=== PATIENT | female | born 1940 | race Caucasian/White ===

== ENCOUNTER → 2020-03-16 12:19 | Outpatient (BNVA) | payer MEDICARE, SELFPAY | PROVIDERS: Family Provider Nurse Practitioner Family; PCP Nurse Practitioner Family; Visit Provider Nurse Practitioner Family | DX: I10 Essential (primary) hypertension (principal); E78.5 Hyperlipidemia, unspecified; G62.9 Polyneuropathy, unspecified | CPT/HCPCS: 80053; 80061; 84443; 85025 ==

== ENCOUNTER 2020-07-16 10:55 | Outpatient (CLI) | payer MEDICARE, SELFPAY ==
[2020-07-16 11:20] LABS: Eosinophils # 0.1 10^3/uL (0.0-0.8); Hemoglobin 12.9 g/dL (11.5-15.3); Lymphocytes # 1.5 10^3/uL (0.8-4.8); Lymphocytes % 49.2 %; Mean Corpuscular HGB Conc 31.5 g/dL (30.0-36.0); Mean Corpuscular Hemoglobin 30.2 pg (28.0-34.0); Mean Platelet Volume 9.7 fL (7.4-10.4); Monocytes # 0.3 10^3/uL (0.2-0.9); Monocytes % 8.3 %; Neutrophils # 1.19 10^3/uL (1.8-7.7); Neutrophils % 39.5 %; Nucleated Red Blood Cells % 0 %; Platelet Count 125 10^3/cmm (130-400); Red Blood Count 4.27 10^6/uL (4.1-5.3); Red Cell Distribution Width 13.5 % (12.1-15.1)
[2020-07-16 11:36] LABS: Alanine Aminotransferase 15 U/L (0-33); Albumin Level 4.6 g/dL (3.5-5.2); Alkaline Phosphatase 91 IU/L (35-105); Anion Gap 15.6 (5-19); Aspartate Amino Transferase 22 U/L (0-32); Blood Urea Nitrogen 25 mg/dL (8-23); Calcium 9.6 mg/dL (8.5-10.5); Carbon Dioxide 27 mmol/L (22-29); Chloride 105 mmol/L (98-107); Glucose 102 mg/dL (65-115); Lactate Dehydrogenase 261 U/L (135-214); Osmolality Calculated 293 mOsm/kg (285-295); Potassium 4.6 mmol/L (3.5-5.1); Sodium 143 mmol/L (136-145); Total Bilirubin 0.5 mg/dL (0.15-1.2); Total Protein 6.6 g/dL (6.6-8.7)
--- NOTE | 2020-07-17 07:20 | ONC FU_ITS ---
Dr. Roberts Patient Follow-Up Note Patient: Devorah Dunn Unit #: [id number]: 1940 Dicatated By: Ming Roberts M.D.Date of Visit:Jul 16, 2020 Onc Med Follow-up/Prog Note Chief Complaint: Splenic lymphoma. 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 She has been in good general health. In April 2010 she becomes severely neutropenic in association with a febrile illness, presumed to have been tick fever. I had seen her initially in June 2012. Her CBC at that time showed mild pancytopenia with hemoglobin 11.6 g, white blood cell count 2700 with absolute neutrophil count of 1400, and platelet count 117,000. She had normal sedimentation rate and negative KELLY and RA titers. Her viral hepatitis profile was negative. She was not symptomatic, and I had opted to just monitor with observation/expectant management. I had last seen her in December 2012, and at that point she was stable. She then continued her regular follow-up with Dr. Mesa. Multiple subsequent blood counts had shown similar findings, though with some minor variability. A repeat CBC from 07/23/2018 showed hemoglobin 11.8 g with white blood cell count 2300 and platelet count 107,000. The differential, however, showed only 36% neutrophils with 58% lymphocytes and 3% monocytes. The other significant changes was that the red cell indices had become mildly hypochromic/microcytic. A comprehensive metabolic profile from 07/09/2018 was unremarkable. In particular, the bilirubin and liver enzymes were normal. B12 level was normal at 672 pg/mL. I have been seen her again on 08/26/2018. Her exam at that time did show moderate splenomegaly with the spleen palpable at 6 cm below the costal margin. There was no peripheral lymphadenopathy noted. Her CBC showed hemoglobin 11.7 g, white blood cell count 2300, and platelet count 115,000. Sedimentation rate was normal at 11 mm/h. LDH was mildly elevated at 252/246 U/L. The serum iron studies showed low transferrin saturation at 9.2% with ferritin 55.9 ng/mL. Serum protein electrophoresis was normal with no monoclonal protein detected. The free light chain assay showed elevated kappa light chain at 112.85 mg/L with lambda light chain 13.20 mg/L and elevated kappa/lambda ratio at 8.55. PNH screen was negative. CT of the abdomen/pelvis on 09/03/2018 showed marked splenomegaly measuring 16.5 cm. There were slightly enlarged gastrohepatic lymph nodes. There was mild hepatomegaly. There was no retroperitoneal or periaortic lymphadenopathy. She underwent bone marrow aspiration/biopsy on 09/23/2018. The marrow was mildly hypercellular, estimated at 50-70%, but with no overt infiltrative process. Iron stores were noted to be absent. Plasma cells were mildly increased, overall at 5%, but in focal areas up to 10-20%. [place]/lambda???stain showed strong staining of plasma cells for kappa light chains and very rare staining for lambda light chains. The standard FISH panels for MDS and for myeloma were unrevealing. However, the lymphoma FISH panel was positive for the MYC (8q24) rearrangement. The standard chromosome analysis was normal. Overall, the findings were felt to be consistent with plasma cell neoplasm. Skeletal survey showed no radiographic evidence of multiple myeloma or other lytic lesions. A 24-hour urine protein electrophoresis showed a total urine protein excretion by 130 mg with no monoclonal protein detected. Further evaluation with PET/CT on 11/20/2018 showed enlarged spleen measuring 17 cm with diffuse abnormally increased activity within the spleen consistent with lymphoma or reactive uptake. There were no focal lesions present. There was no adenopathy present indicate lymphomatous nodes. She was seen for follow-up visit on 11/29/2018. At that point she had just started treatment for herpes zoster eruption in the right lumbar distribution. She was having associated neuralgia, for which she was prescribed gabapentin. It did appear that her overall clinical picture was more consistent with splenic lymphoma rather than myeloma. She also had evidence of iron deficiency anemia, for which she was started on an oral iron supplement. Her other medical illnesses include hypertension, hyperlipidemia, degenerative arthritis, and chronic anxiety. She has macular degeneration. She has a history of subarachnoid hemorrhage in 2017. She is a nonsmoker. INTERIM HISTORY: She underwent a course of treatment with rituximab, beginning on 01/04/2019. Her initial treatment was complicated by symptoms of infusion reaction including chills, pretty severe shaking, and back pain. The symptoms did resolve with IV Demerol, but she did not complete the entire dosage of rituximab. With her second weekly infusion on 01/11/2019 I did include steroid with her premedication, and she tolerated the treatment well. She then continued rituximab infusions weekly. She completed her week 6 treatment on 02/08/2019. At her followup visit on 03/08/2019 she remained moderately anemic. Her serum iron studies showed low transferrin saturation at 18%. She was then given parenteral iron replacement with 2 infusions of Injectafer. She tolerated it well. She had a good response with hemoglobin increasing to 12.9 g on a follow-up CBC on 04/11/2019. Restaging CT the abdomen/pelvis on 07/07/2019 show significant improvement in the previously noted splenomegaly. There was no abdominal or retroperitoneal adenopathy noted. She did have evidence of generalized fecal retention, but previous findings of mild diverticulitis had resolved. A 6.4 mm right middle lobe nodule appeared stable. With those findings, she continued on observation/expectant management for the lymphoma. She is seen for a scheduled visit. She has been feeling good generally. She has good energy and activity tolerance. Her ECOG score is 0. She has good appetite. Her weight is up 10 pounds. She is not had fever or night sweats. She has a little bit of sinus drainage and cough. She does not complain of shortness of breath or chest pain. She has noticed occasional palpitations. She has no GI complaints. She does have some urinary frequency and urgency. Her main complaint now is that she has been having pain in her right second toe associated with a hammertoe deformity. She also has some joint pain in her hands, and she has had problems with her right knee. She does not complain of headache or dizziness. She has just occasional numbness/tingling. Medications: Acetaminophen 1 Tablet (of 650 mg) Oral PRN, Allopurinol 1 (2.5 mg) Tablet Oral daily, Furosemide 1 Tablet (of 20 mg) Oral PRN, Gabapentin 1 Capsule (of 300 mg) Oral t.i.d., Glucosamine HCl 1 Tablet (of 1500 mg) Oral b.i.d., Lipitor 1 (10 mg) Tablet Oral at bedtime, Multivitamins 1 Tablet Oral daily, PreserVision AREDS 2 1 Capsule Oral b.i.d. Allergies: Penicillins Review of Systems: Constitutional - She has good energy and activity tolerance. Appetite is good. Her weight is up 10 lbs. No fever, night sweats, or hot flashes. ECOG score is 0, ENMT - She has a little bit of sinus drainage. No mouth sores. No sore throat or difficulty swallowing, Hematologic/Lymphatic - She has easy bruising, Respiratory - No shortness of breath. She has cough associated with the sinus drainage. No pleuritic pain or hemoptysis, Cardiovascular - No angina pain. She occasionally has palpitations, Gastrointestinal - No nausea or vomiting. No heartburn or acid reflux. No diarrhea or constipation. No blood in the stool or black stools, Genitourinary (F) - No dysuria or hematuria. She has urinary frequency and urgency. No incontinence, Musculoskeletal - She has arthritis in her hands. She has developed a hammertoe deformity in her right 2nd toe, Integumentary - No skin rash, Neurologic - No headache or dizziness. She has occasional numbness/tingling. No other focal neurologic symptoms, Psychiatric - No anxiety or depression. No insomnia. Vital Signs: Performed on Jul 16, 2020 13:07 Height - 68.00 in Weight - 188.6 lbs (HIGH) BSA - 1.99 sq.m BMI - 28.68 Temperature - 98.8 F Pulse - 78 /min Respiration - 20 /min BP - 116/62 mm(hg) O2 Sat - 98 % Pain - 0 Physical Examination: Constitutional - She looks good generally, Eyes - Sclerae nonicteric. Conjunctivae clear, ENMT - No lesions noted in the oral cavity, Hematologic/Lymphatic - No cervical, clavicular, or axillary adenopathy, Respiratory - Lungs are clear with good air movement bilaterally, Cardiovascular - Heart rhythm is regular. There is a II/ systolic murmur. There is no gallop or rub noted, Abdomen - Soft. Liver is not enlarged. I am not able to palpate the spleen. There is no abdominal mass or ascites noted, and there is no inguinal adenopathy, Extremities - No edema. Dorsalis pulses are palpable bilaterally. There is a hammertoe deformity of the right 2nd toe, Neurologic - No focal neurologic deficits noted. Lab/Imaging: Test performed on Jul 16, 2020 11:07 LDH (Total) 261 U/L Sodium 143 mmol/L Potassium 4.6 mmol/L Chloride 105 mmol/L CO2 27 mmol/L Anion Gap 15.6 BUN 25 mg/dL Creatinine 1.4 mg/dL Cr Clearance (Est) 44.01 mL/min Glucose 102 mg/dL Calcium 9.6 mg/dL Protein, Total 6.6 g/dL Albumin 4.6 g/dL Globulin 2.0 g/dL Bilirubin, Total 0.5 mg/dL ALT (SGPT) 15 U/L AST (SGOT) 22 U/L Alkaline Phosphatase 91 IU/L WBC 3.0 10 3/uL RBC 4.27 10 6/uL HGB 12.9 g/dL HCT 41.0 % MCV 96.0 fL MCH 30.2 pg MCHC 31.5 g/dL RDW 13.5 % Platelet Count 125 10 3/cmm MPV 9.7 fL Neutrophils 1.19 10 3/uL Lymphocytes 1.5 10 3/uL Monocytes 0.3 10 3/uL Eosinophils 0.1 10 3/uL Basophils 0.0 10 3/uL Neutrophil % 39.5 % Lymphocyte % 49.2 % Monocyte % 8.3 % Eosinophil % 2.0 % Basophils % 1.0 % NRBC % 0 % Impression: 1. Patient with pancytopenia and with splenomegaly. The spleen showed diffuse uptake by PET, suggestive of lymphoma. There was no associated lymphadenopathy. Bone marrow aspiration/biopsy showed mild increase in plasma cell suggestive of possible plasma cell neoplasm. However, there was no other clinical evidence to suggest myeloma, and a FISH study was positive for the MYC (8q24) rearrangement, consistent with lymphoproliferative disorder. Overall, the findings appeared to be most consistent with splenic lymphoma. 2. She also had evidence of iron deficiency anemia. 3. She has mild chronic kidney disease. Her other medical illnesses include: 4. Hypertension. 5. Hyperlipidemia. 6. Degenerative arthritis. 7. Chronic anxiety. 8. She has a history of subarachnoid hemorrhage. In October 2018 she was treated for herpes zoster in her right lumbar distribution. She developed some associated herpetic neuralgia, which is being managed with gabapentin. On 01/04/2019 she began a course of rituximab for splenic lymphoma. Her initial infusion was complicated by chills and pretty severe shaking. Those symptoms were adequately managed with medication, but she did not complete the full dose of rituximab. With her 2nd and subsequent rituximab infusions, she did receive steroid with her premedication, and she then tolerated the treatment well. As of 02/08/2019 she had completed her 6th weekly infusion. At her followup visit on 03/08/2019 she remained moderately anemic. Her transfusion saturation was low, consistent with iron deficiency. She was given parenteral iron replacement with 2 infusions of Injectafer. She had a good clinical response. Her restaging CT scan on 07/07/2019 showed complete resolution of splenomegaly. Her current CBC still shows moderately severe neutropenia, but her other blood counts are normal. She had a very good response to the rituximab and to the parenteral iron replacement. During follow-up she has continued to have mild leukopenia and thrombocytopenia, but she has no palpable splenomegaly. Overall, she appears to be doing well clinically with no obvious progression of the lymphoma. Plan: She continues observation/expectant management for the lymphoma. I will see her again in one year. In the meantime, I will have her see Dr. Landin for the hammertoe deformity. Signed By: Ming Roberts M.D. <<Signature on File>>
== END 2020-07-16 10:56 | disposition home or self-care (01) ==
LOC: ONCMED 11:01
PROVIDERS: PCP Nurse Practitioner Family; Visit Provider Internal Medicine Medical Oncology
DX: Z08 Encounter for follow-up examination after completed treatment for malignant neoplasm (principal); Z85.72 Personal history of non-Hodgkin lymphomas; D61.818 Other pancytopenia; R16.1 Splenomegaly, not elsewhere classified; D50.9 Iron deficiency anemia, unspecified; N18.9 Chronic kidney disease, unspecified; I10 Essential (primary) hypertension; E78.5 Hyperlipidemia, unspecified; M19.90 Unspecified osteoarthritis, unspecified site; F41.9 Anxiety disorder, unspecified; M20.40 Other hammer toe(s) (acquired), unspecified foot; Z86.2 Personal history of diseases of the blood and blood-forming organs and certain disorders involving the immune mechanism; Z92.21 Personal history of antineoplastic chemotherapy
CPT/HCPCS: 80053; 83615; 85025; 99214

== ENCOUNTER → 2020-08-13 08:11 | Outpatient (BNVA) | payer MEDICARE, SELFPAY | PROVIDERS: PCP Nurse Practitioner Family; Referring Provider Internal Medicine Medical Oncology; Visit Provider Podiatrist Foot & Ankle Surgery | DX: M20.41 Other hammer toe(s) (acquired), right foot (principal); M13.871 Other specified arthritis, right ankle and foot | CPT/HCPCS: 73630 ==

== ENCOUNTER → 2020-09-03 10:29 | Outpatient (BNVA) | payer MEDICARE, SELFPAY | PROVIDERS: PCP Nurse Practitioner Family; Visit Provider Nurse Practitioner Family | DX: I10 Essential (primary) hypertension (principal); E78.5 Hyperlipidemia, unspecified; G62.9 Polyneuropathy, unspecified; Z78.0 Asymptomatic menopausal state | CPT/HCPCS: 80053; 80061; 84443; 85025 ==

== ENCOUNTER → 2021-02-06 12:14 | Outpatient (BNVA) | payer MEDICARE, SELFPAY | PROVIDERS: PCP Nurse Practitioner Family; Visit Provider Nurse Practitioner Family | DX: G62.9 Polyneuropathy, unspecified (principal); I10 Essential (primary) hypertension; R73.9 Hyperglycemia, unspecified | CPT/HCPCS: 80053; 80061; 83036; 84443; 85025 ==

== ENCOUNTER 2021-02-15 14:57 | Outpatient (CLI) | payer MEDICARE, SELFPAY ==
--- NOTE | 2021-02-15 15:15 | XR_ITS ---
WS: [id number] Bone mineral density performed on a [employer], 02/15/2021 Clinical data: osteoporosis screen Findings: The first 4 lumbar vertebral bodies demonstrated the bone mineral density of 1.187 g/cm2 for a young adult T score of 0.1. Measurement of the left hip reveals a bone mineral density of 1.018 g/cm2 with a young adult T score of 0.1. Measurement of the right hip reveals the bone mineral density of 0.935 g/cm2 for young adult T score of -0.6. XR/XR DEXA axial skeleton* 97823 Impression: Normal bone mineral density of the lumbar spine and both hips.
== END 2021-02-15 14:58 | disposition home or self-care (01) ==
PROVIDERS: PCP Nurse Practitioner Family; Visit Provider Nurse Practitioner Family
DX: Z13.820 Encounter for screening for osteoporosis (principal)
CPT/HCPCS: 77080

== ENCOUNTER 2021-07-17 11:42 | Outpatient (CLI) | payer MEDICARE, SELFPAY ==
[2021-07-17 12:50] LABS: Basophils % 0.8 %; Eosinophils # 0.2 10^3/uL (0.0-0.8); Eosinophils % 4.2 %; Hematocrit 40.6 % (37.0-47.0); Hemoglobin 12.9 g/dL (11.5-15.3); Lymphocytes # 1.6 10^3/uL (0.8-4.8); Lymphocytes % 44.7 %; Mean Corpuscular HGB Conc 31.8 g/dL (30.0-36.0); Mean Corpuscular Hemoglobin 30.6 pg (28.0-34.0); Mean Corpuscular Volume 96.4 fl (81-99); Mean Platelet Volume 9.5 fL (7.4-10.4); Monocytes # 0.3 10^3/uL (0.2-0.9); Monocytes % 8.3 %; Neutrophils # 1.51 10^3/uL (1.8-7.7); Nucleated Red Blood Cells % 0 %; Platelet Count 145 10^3/cmm (130-400); Red Blood Count 4.21 10^6/uL (4.1-5.3); Red Cell Distribution Width 13.5 % (12.1-15.1); White Blood Count 3.6 10^3/uL (4.0-10.0)
[2021-07-17 13:18] LABS: Alanine Aminotransferase 12 U/L (0-33); Albumin Level 4.4 g/dL (3.5-5.2); Alkaline Phosphatase 90 IU/L (35-105); Anion Gap 13.5 (5-19); Aspartate Amino Transferase 20 U/L (0-32); Blood Urea Nitrogen 23 mg/dL (8-23); Carbon Dioxide 25 mmol/L (22-29); Chloride 104 mmol/L (98-107); Globulin 2.2 g/dL (1.3-4.6); Glucose 84 mg/dL (65-115); Lactate Dehydrogenase 225 U/L (135-214); Osmolality Calculated 289 mOsm/kg (285-295); Potassium 4.5 mmol/L (3.5-5.1); Sodium 138 mmol/L (136-145); Total Bilirubin 0.4 mg/dL (0.15-1.2); Total Protein 6.6 g/dL (6.6-8.7)
--- NOTE | 2021-07-17 19:24 | ONC FU_ITS ---
Dr. Roberts Patient Follow-Up Note Patient: Devorah Dunn Unit #: [id number]: 1940 Dicatated By: Ming Roberts M.D.Date of Visit:Jul 17, 2021 Onc Med Follow-up/Prog Note Chief Complaint: Splenic lymphoma. 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 In April 2010 she became severely neutropenic in association with a febrile illness, presumed to have been tick fever. I had seen her initially in June 2012. Her CBC at that time showed mild pancytopenia with hemoglobin 11.6 g, white blood cell count 2700 with absolute neutrophil count of 1400, and platelet count 117,000. She had normal sedimentation rate and negative KELLY and RA titers. Her viral hepatitis profile was negative. She was not symptomatic, and I had opted to just monitor with observation/expectant management. I had seen her in December 2012, and at that point she appeared stable. She had then continued her regular follow-up with Dr. Mesa. Multiple subsequent blood counts had shown similar findings, though with some minor variability. On a repeat CBC on 07/23/2018 her hemoglobin was stable at 11.8 g with white blood cell count 2300 and platelet count 107,000. The differential, however, showed only 36% neutrophils with 58% lymphocytes and 3% monocytes. The other significant change was that the red cell indices had become mildly hypochromic/microcytic. A comprehensive metabolic profile from 07/09/2018 was unremarkable. In particular, the bilirubin and liver enzymes were normal. B12 level was normal at 672 pg/mL. I had seen her again on 08/26/2018. Her exam at that time did show moderate splenomegaly with the spleen palpable at 6 cm below the costal margin. There was no peripheral lymphadenopathy noted. Her CBC showed hemoglobin 11.7 g, white blood cell count 2300, and platelet count 115,000. Sedimentation rate was normal at 11 mm/h. LDH was mildly elevated at 252/246 U/L. The serum iron studies showed low transferrin saturation at 9.2% with ferritin 55.9 ng/mL. Serum protein electrophoresis was normal with no monoclonal protein detected. The free light chain assay showed elevated kappa light chain at 112.85 mg/L with lambda light chain 13.20 mg/L and elevated kappa/lambda ratio at 8.55. PNH screen was negative. CT of the abdomen/pelvis on 09/03/2018 showed marked splenomegaly measuring 16.5 cm. There were slightly enlarged gastrohepatic lymph nodes. There was mild hepatomegaly. There was no retroperitoneal or periaortic lymphadenopathy. She underwent bone marrow aspiration/biopsy on 09/23/2018. The marrow was mildly hypercellular, estimated at 50-70%, but with no overt infiltrative process. Iron stores were noted to be absent. Plasma cells were mildly increased, overall at 5%, but in focal areas up to 10-20%. [place]/lambda???stain showed strong staining of plasma cells for kappa light chains and very rare staining for lambda light chains. The standard FISH panels for MDS and for myeloma were unrevealing. However, the lymphoma FISH panel was positive for the MYC (8q24) rearrangement. The standard chromosome analysis was normal. Overall, the findings were felt to be consistent with plasma cell neoplasm. Skeletal survey showed no radiographic evidence of multiple myeloma or other lytic lesions. A 24-hour urine protein electrophoresis showed a total urine protein excretion by 130 mg with no monoclonal protein detected. Further evaluation with PET/CT on 11/20/2018 showed enlarged spleen measuring 17 cm with diffuse abnormally increased activity within the spleen consistent with lymphoma or reactive uptake. There were no focal lesions present. There was no adenopathy present indicate lymphomatous nodes. She was seen for follow-up visit on 11/29/2018. At that point she had just started treatment for herpes zoster eruption in the right lumbar distribution. She was having associated neuralgia, for which she was prescribed gabapentin. It did appear that her overall clinical picture was more consistent with splenic lymphoma rather than myeloma. She also had evidence of iron deficiency anemia, for which she was started on an oral iron supplement. She then underwent a course of treatment with rituximab, beginning on 01/04/2019. Her initial treatment was complicated by symptoms of infusion reaction including chills, pretty severe shaking, and back pain. The symptoms did resolve with IV Demerol, but she did not complete the entire dosage of rituximab. With her 2nd weekly infusion on 01/11/2019 I did include steroid with her premedication, and she tolerated the treatment well. She then continued rituximab infusions weekly. She completed her week 6 treatment on 02/08/2019. At her followup visit on 03/08/2019 she remained moderately anemic. Her serum iron studies showed low transferrin saturation at 18%. She was then given parenteral iron replacement with 2 infusions of Injectafer. She tolerated it well. She had a good response with hemoglobin increasing to 12.9 g on a follow-up CBC on 04/11/2019. Restaging CT the abdomen/pelvis on 07/07/2019 showed significant improvement in the previously noted splenomegaly. There was no abdominal or retroperitoneal adenopathy noted. She did have evidence of generalized fecal retention, but previous findings of mild diverticulitis had resolved. A 6.4 mm right middle lobe nodule appeared stable. With those findings, she continued on observation/expectant management for the lymphoma. Her other medical illnesses include hypertension, hyperlipidemia, degenerative arthritis, and chronic anxiety. She has macular degeneration. She has a history of subarachnoid hemorrhage in 2017. She is a nonsmoker. INTERIM HISTORY: She is seen for a followup visit. She has been feeling pretty good generally. Her energy has been okay. She is doing light work at home. ECOG score is 1. She has good appetite. She has no fever or night sweats. She has a little bit of sinus drainage. She also reports having dry mouth and throat. She has no shortness of breath, cough, or chest pain. She has no GI complaints. Her bowel function has been adequate with Metamucil. She has urinary frequency and some urgency. She has some joint pain, but not bad. She does not complain of headache or dizziness. She has a little bit of numbness in her hands. Medications: Acetaminophen 1 Tablet (of 650 mg) Oral PRN, Allopurinol 1 (2.5 mg) Tablet Oral daily, Furosemide 1 Tablet (of 20 mg) Oral PRN, Gabapentin 1 Capsule (of 300 mg) Oral t.i.d., Glucosamine HCl 1 Tablet (of 1500 mg) Oral b.i.d., Lipitor 1 (10 mg) Tablet Oral at bedtime, Multivitamins 1 Tablet Oral daily, PreserVision AREDS 2 1 Capsule Oral b.i.d. Allergies: Penicillins Vital Signs: Performed on Jul 17, 2021 14:08 Height - 68.00 in Weight - 187 lbs (LOW) BSA - 1.99 sq.m BMI - 28.43 Temperature - 97.5 F (LOW) Pulse - 67 /min Respiration - 18 /min BP - 149/74 mm(hg) (HIGH) O2 Sat - 99 % Pain - 0 Fatigue - 0 Physical Examination: Constitutional - She looks pretty good generally, Eyes - Sclerae nonicteric. Conjunctivae clear, ENMT - No lesions noted in the oral cavity, Hematologic/Lymphatic - No cervical, clavicular, or axillary adenopathy, Respiratory - Lungs are clear with good air movement bilaterally, Cardiovascular - Heart rhythm is regular. There is a II/ systolic murmur. There is no gallop or rub noted, Abdomen - Soft. Liver is not enlarged. I am not able to palpate the spleen. There is no abdominal mass or ascites noted, and there is no inguinal adenopathy, Extremities - No edema. Pedal pulses are palpable bilaterally, Neurologic - No focal neurologic deficits noted. Lab/Imaging: Test performed on Jul 17, 2021 12:18 LDH (Total) 225 U/L Sodium 138 mmol/L Potassium 4.5 mmol/L Chloride 104 mmol/L CO2 25 mmol/L Anion Gap 13.5 BUN 23 mg/dL Creatinine 1.1 mg/dL Cr Clearance (Est) 54.62 mL/min Glucose 84 mg/dL Osmolality - Calculated 289 mOsm/kg Calcium 9.0 mg/dL Protein, Total 6.6 g/dL Albumin 4.4 g/dL Globulin 2.2 g/dL Bilirubin, Total 0.4 mg/dL ALT (SGPT) 12 U/L AST (SGOT) 20 U/L Alkaline Phosphatase 90 IU/L WBC 3.6 10 3/uL RBC 4.21 10 6/uL HGB 12.9 g/dL HCT 40.6 % MCV 96.4 fl MCH 30.6 pg MCHC 31.8 g/dL RDW 13.5 % Platelet Count 145 10 3/cmm MPV 9.5 fL Neutrophils 1.51 10 3/uL Lymphocytes 1.6 10 3/uL Monocytes 0.3 10 3/uL Eosinophils 0.2 10 3/uL Basophils 0.0 10 3/uL Neutrophil % 42.0 % Lymphocyte % 44.7 % Monocyte % 8.3 % Eosinophil % 4.2 % Basophils % 0.8 % NRBC % 0 % Problem List: 1. Splenic lymphoma. 2. Iron deficiency anemia. 3. Hypertension. 4. Hyperlipidemia. 5. Chronic kidney disease. 6. Degenerative arthritis. 7. Chronic anxiety. 8. She has a history of subarachnoid hemorrhage. Problems Addressed with this Encounter and Plan: Patient with clinical evidence of splenic lymphoma, presenting with pancytopenia and with splenomegaly. The spleen showed diffuse uptake by PET, suggestive of lymphoma. There was no associated lymphadenopathy. Bone marrow aspiration/biopsy showed mild increase in plasma cell suggestive of possible plasma cell neoplasm. However, there was no other clinical evidence to suggest myeloma, and a FISH study was positive for the MYC (8q24) rearrangement, consistent with lymphoproliferative disorder. Overall, the findings appeared to be most consistent with splenic lymphoma. On 01/04/2019 she began a course of treatment with rituximab. Her initial infusion was complicated by chills and pretty severe shaking. Those symptoms were adequately managed with medication, but she did not complete the full dose of rituximab. With her 2nd and subsequent rituximab infusions, she did receive steroid with her premedication, and she then tolerated the treatment well. As of 02/08/2019 she had completed her 6th weekly infusion. She had a very good response by clinical evaluation and by CT scan, though she subsequently did require parenteral iron replacement for the iron deficiency anemia. During follow-up she has continued to have mild neutropenia, but she has been doing well clinically, thus far with no evidence of recurrence/progression of the lymphoma. She continues on expectant management. I will see her for a follow-up visit in one year, or sooner as needed. Signed By: Ming Roberts M.D. <<Signature on File>>
== END 2021-07-17 11:43 | disposition home or self-care (01) ==
LOC: ONCMED 11:46
PROVIDERS: PCP Nurse Practitioner Family; Visit Provider Internal Medicine Medical Oncology
DX: Z08 Encounter for follow-up examination after completed treatment for malignant neoplasm (principal); Z85.72 Personal history of non-Hodgkin lymphomas; D50.9 Iron deficiency anemia, unspecified; I10 Essential (primary) hypertension; E78.5 Hyperlipidemia, unspecified; N18.9 Chronic kidney disease, unspecified; M19.90 Unspecified osteoarthritis, unspecified site; F41.9 Anxiety disorder, unspecified; Z86.2 Personal history of diseases of the blood and blood-forming organs and certain disorders involving the immune mechanism; Z79.899 Other long term (current) drug therapy; Z92.21 Personal history of antineoplastic chemotherapy
CPT/HCPCS: 36415; 80053; 83615; 85025; 99214

== ENCOUNTER → 2021-07-31 10:52 | Outpatient (BNVA) | payer MEDICARE, SELFPAY | PROVIDERS: PCP Nurse Practitioner Family; Visit Provider Nurse Practitioner Family | DX: I10 Essential (primary) hypertension (principal); R73.9 Hyperglycemia, unspecified; G62.9 Polyneuropathy, unspecified; Z78.0 Asymptomatic menopausal state | CPT/HCPCS: 83036; 85025 ==

== ENCOUNTER → 2021-09-18 09:26 | Outpatient (BNVA) | payer MEDICARE, SELFPAY | PROVIDERS: PCP Nurse Practitioner Family; Visit Provider Nurse Practitioner Family | DX: I10 Essential (primary) hypertension (principal) | CPT/HCPCS: 80053; 80061; 82306; 82607; 84443 ==

== ENCOUNTER → 2022-03-12 11:42 | Outpatient (BNVA) | payer MEDICARE, SELFPAY | PROVIDERS: PCP Nurse Practitioner Family; Visit Provider Family Medicine | DX: E56.9 Vitamin deficiency, unspecified (principal); I10 Essential (primary) hypertension; R73.9 Hyperglycemia, unspecified; E78.5 Hyperlipidemia, unspecified; G62.9 Polyneuropathy, unspecified | CPT/HCPCS: 80053; 80061; 82306; 82607; 83036; 84443; 85025 ==

== ENCOUNTER → 2022-10-06 09:35 | Outpatient (BNVA) | payer MEDICARE, SELFPAY | PROVIDERS: PCP Nurse Practitioner Family; Visit Provider Nurse Practitioner Family | DX: Z00.00 Encounter for general adult medical examination without abnormal findings (principal); R73.9 Hyperglycemia, unspecified; I10 Essential (primary) hypertension; G62.9 Polyneuropathy, unspecified; E78.5 Hyperlipidemia, unspecified | CPT/HCPCS: 80053; 80061; 83036; 84443; 85025 ==

== ENCOUNTER → 2023-05-27 09:51 | Outpatient (BNVA) | payer MEDICARE, SELFPAY | PROVIDERS: PCP Nurse Practitioner Family; Visit Provider Nurse Practitioner Family | DX: R73.9 Hyperglycemia, unspecified (principal); I10 Essential (primary) hypertension; E55.9 Vitamin D deficiency, unspecified; G62.9 Polyneuropathy, unspecified | CPT/HCPCS: 80053; 80061; 82306; 82607; 83036; 84443; 85025 ==

== ENCOUNTER → 2024-01-22 11:30 | Outpatient (BNVA) | payer MEDICARE, SELFPAY | PROVIDERS: PCP Nurse Practitioner Family; Visit Provider Nurse Practitioner Family | DX: E55.9 Vitamin D deficiency, unspecified (principal); I10 Essential (primary) hypertension; R73.9 Hyperglycemia, unspecified | CPT/HCPCS: 80053; 80061; 82306; 83036; 84443; 85025 ==

== ENCOUNTER → 2025-01-16 10:23 | Outpatient (BNVA) | payer MEDICARE, SELFPAY | PROVIDERS: Family Provider Nurse Practitioner Family; PCP Nurse Practitioner Family; Visit Provider Nurse Practitioner Family | DX: R05.9 Cough, unspecified (principal); I10 Essential (primary) hypertension; E55.9 Vitamin D deficiency, unspecified; R73.9 Hyperglycemia, unspecified; E78.5 Hyperlipidemia, unspecified; J06.9 Acute upper respiratory infection, unspecified; M54.50 Low back pain, unspecified; G89.29 Other chronic pain | CPT/HCPCS: 71046; 80053; 80061; 82306; 83036; 84443; 85025 ==

== ENCOUNTER → 2025-08-22 10:52 | Outpatient (BNVA) | payer MEDICARE, SELFPAY | PROVIDERS: Family Provider Nurse Practitioner Family; PCP Nurse Practitioner Family; Visit Provider Nurse Practitioner Family | DX: I10 Essential (primary) hypertension (principal); R73.9 Hyperglycemia, unspecified; E55.9 Vitamin D deficiency, unspecified | CPT/HCPCS: 80053; 80061; 82306; 83036; 84443; 85025 ==